=== PATIENT | male | born 1955 | race Caucasian/White ===

== ENCOUNTER 2019-03-20 01:49 | Inpatient (IN) | payer MEDICAID ==
[~2019-03-20] VITALS: Ht 170.2 cm; Wt 62.6 kg
[2019-03-20 01:49] VITALS: BP 159/106
[2019-03-20] MEDS ORDERED: ALUMINUM HYD/MAG/SIMETHICONE 30 ML UDC PO ONE (02:10)
[2019-03-20] MEDS ORDERED: LIDOCAINE VISCOUS 2% 20 ML UDC PO ONE (02:10)
[2019-03-20] MEDS ORDERED: FAMOTIDINE 20 MG/2 ML VIAL IVP ONE (02:10)
[2019-03-20] MEDS ORDERED: MORPHINE SULFATE 4 MG/ML SYR IVP ONE (02:10)
[2019-03-20] MEDS ORDERED: NACL 0.9% 1,000 ML IV ONE (02:10)
--- NOTE | 2019-03-20 02:14 | NUR ---
64 Y/O MALE BIB EMS. PT PICKED UP FROM HOME. WOKE UP WITH SEVERE EPIGASTRIC ABD PAIN, NON-RADIATING, SEVERE PRESSURES PAIN, 10/10. ALSO C/O NAUSEA WITHOUT VOMITING. DIAPHORETIC. NO SOB/DYPSNEA. ABD HARD AND TENDER TO PALPATION. X4 QUADRANT BOWEL SOUNDS PRESENT. POSITIONED IN BED FOR COMFORT. ER MD AWARE. CONTINUE TO MONITOR.
--- NOTE | 2019-03-20 02:14 | NUR ---
PT BIBA [facility] TO ER BED 10
[2019-03-20 02:34] LABS: BASOPHILS # (AUTO) 0.1 K/uL (0.00-0.22); BASOPHILS % (AUTO) 0.7 % (0.0-2.0); EOSINOPHILS # (AUTO) 0.1 K/uL (0-0.4); EOSINOPHILS % (AUTO) 0.7 % (0.0-4.0); HEMATOCRIT 46.9 % (36-52); HEMOGLOBIN 15.9 g/dL (12.0-18.0); LYMPHOCYTES # (AUTO) 2.3 K/uL (2.0-11.5); LYMPHOCYTES % (AUTO) 32.8 % (20.5-51.1); MEAN CORPUSCULAR HEMOGLOBIN 34 pg (27-31); MEAN CORPUSCULAR HGB CONC 34 g/dL (33-37); MEAN CORPUSCULAR VOLUME 99.9 fL (80-94); MONOCYTES # (AUTO) 0.6 K/uL (0.8-1.0); MONOCYTES % (AUTO) 8.3 % (1.7-9.3); NEUTROPHILS % (AUTO) 57.5 % (42.2-75.2); PLATELET COUNT (AUTO) 316 K/uL (140-450); RED BLOOD CELL COUNT(AUTO) 4.69 MIL/uL (4.20-6.10); RED CELL DISTRIBUTION WIDTH 13.3 % (11.6-13.7)
[2019-03-20 02:55] LABS: ALBUMIN 3.8 g/dL (3.4-5.0); ANION GAP 16.2 (8-16); CARBON DIOXIDE 26.9 mmol/L (21-32); POTASSIUM 5.1 mmol/L (3.5-5.1); TOTAL BILIRUBIN 0.7 mg/dL (0.0-1.0)
--- NOTE | 2019-03-20 03:00 | NUR ---
PT IN BED RESTING WITH EYES OPEN. STATES PAIN REDUCED 02/15. TOLLERABLE. NO SOB/DYSPNEA. DR SPEAR NOTIFED. CONTINUE TO MONITOR.
--- NOTE | 2019-03-20 04:00 | NUR ---
PT IN BED RESTING WITH EYES OPEN. NO SOB/DYSPNEA. NO N/V. 4/10 PAIN. CONTINUE TO MONITOR.
--- NOTE | 2019-03-20 05:00 | NUR ---
PT IN BED RESTING WITH EYES CLOSED. NO C/O AT THIS TIME. DR SPEAR NOTIFIED. CONTINUE TO MONITOR.
--- NOTE | 2019-03-20 05:24 | NUR ---
PT STATES PAIN RETURNING AND NAUEA RETURNING. DR SPEAR NOTIFIED. CONTINUE TO MONITOR.
[2019-03-20] MEDS ORDERED: ONDANSETRON 4 MG/2 ML VIAL IVP ONE (05:25)
--- NOTE | 2019-03-20 05:50 | NUR ---
MORPHINE 4MG AND ZOFRAN 4MG GIVEN PER DR SPEAR ORDERS. MEDICATION NOT POPULATING. OVERIDE IN PIXIS.
[2019-03-20] MEDS ORDERED: MORPHINE SULFATE 4 MG/ML SYR ONE (05:55)
[2019-03-20] MEDS ORDERED: ONDANSETRON 4 MG/2 ML VIAL ONE (05:56)
[2019-03-20] MEDS ORDERED: HYDROmorphone PFS 2 MG/ML SYR IVP ONE (06:35)
[2019-03-20] MEDS ORDERED: MORPHINE SULFATE 2 MG/ML SYR IVP PRN (06:55)
[2019-03-20] MEDS ORDERED: ONDANSETRON 4 MG/2 ML VIAL IM/IVP PRN (06:55)
--- NOTE | 2019-03-20 07:10 | NUR ---
ASSUMED CARE OF PT FROM TIMOTHY NICHOLS
--- NOTE | 2019-03-20 07:45 | NUR ---
Patient will be admitted to care of DR CASTILLO. Admited to TELE. Will go to room 126-A. Belongings list completed. Report to TIMOTHY BREWSTER.
--- NOTE | 2019-03-20 07:50 | NUR ---
RECEIVED BEDSIDE REPORT FROM TIE WORKER. PATIENT AMBULATED TO BED WITH STEADY GAIT, NO SIGNS OF DISTRESS ON RA. VITALS STABLE. PATIENT CHANGED INTO HOSPITAL GOWN. ORIENTED PATIENT TO ROOM AND UNIT. PATIENT CURRENTLY NPO. 2 GAUGE IV INSERTED INTO RIGHT AC. FLUSHING WELL. NO C/O PAIN AT THIST TIME. PATIENT HAD 1 EPISODE OF VOMITING. EMESIS WAS 80ML GREEN AND BILE-LIKE. PATIENT RETURNED TO BED, NO LONGER C/O NAUSEA.
[2019-03-20] MEDS ORDERED: MORPHINE SULFATE 4 MG/ML SYR IVP SCH (08:15)
[2019-03-20] MEDS ORDERED: amLODIPine 5 MG TAB PO SCH (09:00)
[2019-03-20] MEDS ORDERED: BISACODYL 10 MG SUPP RC SCH (09:00)
[2019-03-20] MEDS: NACL 0.9% 1,000 ML IV SCH ×3 (10:17→21:54)
--- NOTE | 2019-03-20 10:17 | NUR ---
ADMINISTERED SCHEDULED MEDICATIONS. PATIENT TOLERATED WELL. NO SIGNS OF DISTRESS ON RA, PATIENT STATES HE HAS "A LITTLE" PAIN, BUT THAT HE DOES NOT WANT MEDICATION FOR IT AT THIS TIME. SAFETY PRECAUTIONS IN PLACE. WILL CONTINUE TO MONITOR.
[2019-03-20 10:31] LABS: PROTHROMBIN TIME 9.8 secs (10.8-13.4)
[2019-03-20 10:42] LABS: FREE T4 (FREE THYROXINE) 0.78 ng/dL (0.76-1.46); MAGNESIUM 1.8 mg/dL (1.8-2.4); PHOSPHORUS 3.3 mg/dL (2.5-4.9); THYROID STIMULATING HORMONE 1.8 uIU/mL (0.34-3.74)
--- NOTE | 2019-03-20 12:45 | NUR ---
PATIENT EATING LUNCH WITH FAMILY AT BEDSIDE. NO C/O PAIN OR NAUSEA. WILL CONTINUE TO MONITOR.
--- NOTE | 2019-03-20 15:40 | NUR ---
ADMINISTERED SCHEDULED MEDICATIONS. PATIENT TOLERATED WELL. NO SIGNS OF DISTRESS ON RA. SAFETY PRECAUTIONS IN PLACE. WILL CONTINUE TO MONITOR.
[2019-03-20 16:00] VITALS: BP 134/74
[2019-03-20] MEDS: MORPHINE SULFATE 2 MG/ML SYR IVP PRN (17:06)
--- NOTE | 2019-03-20 17:10 | NUR ---
GAVE 1MG MORPHINE IV FOR 6/10 PAIN. SAFETY PRECAUTIONS IN PLACE.
--- NOTE | 2019-03-20 18:19 | NUR ---
PATIENT SLEEPING IN BED, NO SIGNS OF DISTRESS. VISIBLE CHEST RISE. WILL CONTINUE TO MONITOR.
--- NOTE | 2019-03-20 19:15 | NUR ---
GAVE BEDSIDE REPORT TO STRIPPER PRELIMINARY RN. PATIENT IN STABLE CONDITION ON RA.
--- NOTE | 2019-03-20 19:16 | NUR ---
RECEIVED REPORT FROM AM NURSE. PT LAYING IN BED, AWAKE, ALERT AND ORIENTED. ABLE TO VERBALIZE NEEDS. PT BREATHING EQUAL AND UNLABORED ON ROOM AIR. RIGHT AC 20G INTACT AND INFUSING WELL. SAFETY MEASURES IN PLACE. CALL LIGHT WITHIN REACH.
[2019-03-20 20:00] VITALS: BP 120/63
--- NOTE | 2019-03-20 21:00 | NUR ---
ANTIBIOTICS HUNG. PT SLEEPING IN BED BUT EASILY AWAKEN. NO C/O DISCOMFORT. WILL CONTINUE TO MONITOR.
[2019-03-20] MEDS: metroNIDAZOLE 500 MG/NS PREMIX 100 ML IV SCH (21:54)
--- NOTE | 2019-03-21 | NUR ---
VITALS TAKEN. PT SLEEPING. BREATHING UNLABORED. CALL LIGHT WITHIN REACH.
[2019-03-21 00:10] VITALS: BP 120/60
[2019-03-21 04:25] VITALS: BP 120/66
[2019-03-21] MEDS: MORPHINE SULFATE 2 MG/ML SYR IVP PRN ×2 (04:31→09:15)
[2019-03-21] MEDS: metroNIDAZOLE 500 MG/NS PREMIX 100 ML IV SCH ×3 (04:31→22:10)
--- NOTE | 2019-03-21 04:31 | NUR ---
MORPHINE GIVEN FOR 5/10 ABD PAIN
--- NOTE | 2019-03-21 07:20 | NUR ---
ENDORSED TO AM NURSE FOR CONTINUITY OF CARE. PT IN STABLE CONDITION.
--- NOTE | 2019-03-21 07:21 | NUR ---
RECEIVED REPORT FROM STICKER HAND RN, DECEMBER. PATIENT RESTING IN BED, AWAKE. NO SIGNS OF DISTRESS ON RA. WILL CONTINUE TO MONITOR.
[2019-03-21 08:00] VITALS: BP 122/70
[2019-03-21 08:04] LABS: ANION GAP 11.3 (8-16); CARBON DIOXIDE 26.7 mmol/L (21-32); CREATININE 0.9 mg/dL (0.7-1.3)
[2019-03-21 08:06] LABS: MAGNESIUM 2.1 mg/dL (1.8-2.4); PHOSPHORUS 2.9 mg/dL (2.5-4.9)
[2019-03-21 08:17] LABS: BASOPHILS % (AUTO) 0.2 % (0.0-2.0); EOSINOPHILS % (AUTO) 0.4 % (0.0-4.0); HEMOGLOBIN 14.6 g/dL (12.0-18.0); LYMPHOCYTES # (AUTO) 1.3 K/uL (2.0-11.5); LYMPHOCYTES % (AUTO) 20.6 % (20.5-51.1); MEAN CORPUSCULAR HEMOGLOBIN 34 pg (27-31); MEAN CORPUSCULAR HGB CONC 34 g/dL (33-37); MEAN CORPUSCULAR VOLUME 100.1 fL (80-94); MONOCYTES # (AUTO) 0.4 K/uL (0.8-1.0); MONOCYTES % (AUTO) 6.5 % (1.7-9.3); NEUTROPHILS # (AUTO) 4.4 K/uL (1.8-7.7); NEUTROPHILS % (AUTO) 72.3 % (42.2-75.2); PLATELET COUNT (AUTO) 245 K/uL (140-450); RED BLOOD CELL COUNT(AUTO) 4.29 MIL/uL (4.20-6.10); RED CELL DISTRIBUTION WIDTH 13.1 % (11.6-13.7); WHITE BLOOD COUNT (AUTO) 6.1 K/uL (4.8-10.8)
[2019-03-21] MEDS: LACTOBACILLUS RHAMNOSUS GG 1 EACH CAP PO SCH (09:14)
--- NOTE | 2019-03-21 09:17 | NUR ---
ADMINISTERED SCHEDULED MEDICATIONS AND PRN 1MG MORPHINE IV FOR PAIN OF 4/10. PATIENT HAD PREVIOUSLY STATED THAT HE DID NOT NEED PAIN MEDICATION BUT IS NOW STATING THAT HE WANTS IT. PATIENT TOLERATED ALL MEDICATIONS WELL. NO SIGNS OF DISTRESS. VITALS ARE STABLE. SAFETY PRECAUTIONS IN PLACE.
--- NOTE | 2019-03-21 09:31 | NUR ---
PATIENT HAS BEEN SCREENED AND CATEGORIZED MODERATE NUTRITION RISK. PATIENT WILL BE SEEN WITHIN 3-5 DAYS OF ADMISSION. 03/22/19-03/24/[address]
[2019-03-21] MEDS: NACL 0.9% 1,000 ML IV SCH ×3 (09:56→22:14)
[2019-03-21 10:11] LABS: BARBITURATE, URINE NEG. ng/ml (NEG <=200); BENZODIAZEPINE, URINE NEG. ng/mL (NEG <=200); CANNABINOID, URINE NEG. ng/mL (NEG <=50); COCAINE, URINE NEG. ng/mL (NEG <=300); OPIATE, URINE NEG. ng/mL (NEG <=2000); PHENCYCLIDINE SCREEN,URINE NEG. ng/mL (NEG <=25)
[2019-03-21 10:15] LABS: APPEARANCE,URINE CLEAR (CLEAR); BILIRUBIN,URINE NEGATIVE (NEGATIVE); BLOOD, URINE NEGATIVE (NEGATIVE); COLOR,URINE YELLOW (YELLOW); LEUKOCYTE ESTERASE ,URINE NEGATIVE (NEGATIVE); NITRITE, URINE NEGATIVE (NEGATIVE); PH,URINE 6.5 (5.0-9.0); UGLUCOSE NEGATIVE (NEGATIVE)
--- NOTE | 2019-03-21 13:04 | NUR ---
ADMINISTERED SCHEDULED MEDICATIONS. PATIENT TOLERATED WELL. PATIENT ATE 100% OF LUNCH. TOLERATING FULL LIQUID WITH NO C/O NAUSEA, BUT C/O OF MINOR PAIN IN MID/UPPER ABDOMINAL REGION. FAMILY AT BEDSIDE. UPDATED PATIENT ON PLAN OF CARE. POSSIBLE DISCHARGER TOMORROW. PATIENT ANXIOUS TO GET HOME. ALL SAFETY PRECAUTIONS IN PLACE. IV INFUSING ELL TO RIGHT AC 20 GAUGE. WILL CONTINUE TO MONITOR.
--- NOTE | 2019-03-21 15:20 | NUR ---
ADMINISTERED SCHEDULED MEDICATIONS. PATIENT TOLERATED WELL. FAMILY AT BEDSIDE. NO SIGNS OF DISTRESS.
[2019-03-21 16:00] VITALS: BP 110/71
--- NOTE | 2019-03-21 17:30 | NUR ---
PATIENT RESTING, FAMILY AT BEDSIDE. NO SIGNS FO DISTRESS, REPORTING MINOR PAIN, DOES NOT WANT MEDS. WILL CONTINUE TO MONITOR.
--- NOTE | 2019-03-21 19:28 | NUR ---
GAVE BEDSIDE REPORT TO BOOM OPERATOR RNRUBY. PATIENT IN STABLE CONDITION ON RA.
--- NOTE | 2019-03-21 19:29 | NUR ---
RECEIVED REPORT FROM AM SHIFT RN, NEY. PATIENT IS AWAKE, ALERT, WATCHING TV. ON ROOM AIR, WITH RIGHT AC 20G IV, RUNNING WITH NORMAL SALINE AT 126 ML/HR, IV IS PATENT AND INTACT. PATIENT IS ON CLEAR LIQUID DIET, AMBULATORY, SKIN IS INTACT, AND DENIES ANY PAIN AT THIS TIME. WILL MONITOR PATIENT THROUGHOUT SHIFT.
--- NOTE | 2019-03-21 21:00 | NUR ---
PATIENT AWAKE, WATCHING TV, DENIES PAIN AT THIS TIME. WILL ADMINISTER IV ANTIBIOTICS ORDERED.
--- NOTE | 2019-03-21 22:10 | NUR ---
HUNG IV ANTIBIOTICS, AND NEW BAG OF NORMAL SALINE, ORDERED. PATIENT LYING DOWN, ASLEEP, WITH NO SIGNS OF DISTRESS. WILL CONTINUE TO MONITOR PATIENT.
[2019-03-22] VITALS: BP 105/59
--- NOTE | 2019-03-22 | NUR ---
VITAL SIGNS CHECKED AND CHARTED. PATIENT LYING DOWN, ASLEEP, WITH NO SIGNS OF DISTRESS. WILL CONTINUE TO MONITOR PATIENT.
--- NOTE | 2019-03-22 01:55 | NUR ---
PATIENT LYING DOWN, ASLEEP, WITH NO SIGNS OF DISTRESS. WILL CONTINUE TO MONITOR PATIENT.
--- NOTE | 2019-03-22 04:00 | NUR ---
PATIENT LYING DOWN, ASLEEP, WITH NO SIGNS OF DISTRESS. WILL CONTINUE TO MONITOR PATIENT.
[2019-03-22] MEDS: metroNIDAZOLE 500 MG/NS PREMIX 100 ML IV SCH ×2 (04:43→13:01)
--- NOTE | 2019-03-22 04:43 | NUR ---
HUNG IV ANTIBIOTICS ORDERED. PATIENT TOLERATING IT WELL. INFORMED PATIENT FOR URINE SAMPLE COLLECTION. WILL CONTINUE TO MONITOR PATIENT.
--- NOTE | 2019-03-22 06:30 | NUR ---
PATIENT LYING DOWN, ASLEEP, WITH NO SIGNS OF DISTRESS OR DISCOMFORT. WILL CONTINUE TO MONITOR PATIENT.
[2019-03-22] MEDS: NACL 0.9% 1,000 ML IV SCH ×2 (06:35→13:02)
--- NOTE | 2019-03-22 07:15 | NUR ---
REPORT GIVEN AT BEDSIDE TO AM SHIFT RN, PUSHPA, FOR PATIENT'S CONTINUITY OF CARE. PATIENT IS AWAKE, WATCHING TV, AND ON HIS PHONE. WAS ABLE TO COLLECT URINE. PATIENT DENIES ANY PAIN AT THIS TIME.
--- NOTE | 2019-03-22 07:16 | NUR ---
RECEIVED ENDORSEMENT FROM HEAVY EQUIPMENT RENTAL MANAGER NURSE. PATIENT IS AAOX4, NIUEAN SPEAKING. RESPIRATIONS ARE EVEN AND UNLABORED ON ROOM AIR. RIGHT AC 20G IV INTACT, PATENT, AND INFUSING IVF. PATIENT DENIES ANY PAIN AT THIS TIME. PLAN OF CARE WAS REVIEWED WITH PATIENT, PATIENT VERBALIZED UNDERSTANDING. SAFETY MEASURES IN PLACE, CALL LIGHT WITHIN REACH.
[2019-03-22 08:00] VITALS: BP 125/72
[2019-03-22] MEDS: LACTOBACILLUS RHAMNOSUS GG 1 EACH CAP PO SCH (08:54)
--- NOTE | 2019-03-22 09:00 | NUR ---
ADMINISTERED SCHEDULED MEDICATIONS. PATIENT TOLERATED WELL NO OTHER NEEDS AT THIS TIME. PATIENT DENIES ANY PAIN AT THIS TIME.
--- NOTE | 2019-03-22 11:36 | NUR ---
PATIENT RESTING. PATIENT DENIES ANY PAIN, NO OTHER NEEDS AT THIS TIME.
--- NOTE | 2019-03-22 13:10 | NUR ---
ADMINISTERED SCHEDULED MEDICATIONS. PATIENT TOLERATED WELL. NO OTHER NEEDS AT THIS TIME. PATIENT DENIES ANY PAIN AT THIS TIME. FAMILY IS PRESENT AT THE BEDSIDE.
[2019-03-22] MEDS ORDERED: METR250T2 PO (13:53)
[2019-03-22] MEDS ORDERED: LACT10CA1 PO (13:53)
--- NOTE | 2019-03-22 15:50 | NUR ---
ADMINISTERED SCHEDULED MEDICATIONS. PATIENT TOLERATED WELL. PATIENT DENIES ANY PAIN AT THIS TIME. NO OTHER NEEDS AT THIS TIME.
[2019-03-22 16:00] VITALS: BP 126/75
--- NOTE | 2019-03-22 17:45 | NUR ---
PATIENT SITTING IN BED CONVERSING WITH FAMILY, NO OTHER NEEDS AT THIS TIME.
--- NOTE | 2019-03-22 18:09 | NUR ---
DR. ALMANZAR SAW PATIENT. PATIENT WISHED TO BE SEEN OUTPATIENT. NO OTHER NEEDS AT THIS TIME.
--- NOTE | 2019-03-22 19:39 | NUR ---
ENDORSED TO PACKAGE LINER NURSE FOR CONTINUITY OF CARE. PATIENT IS STABLE AT THIS TIME.
--- NOTE | 2019-03-22 19:40 | NUR ---
RECEIVED REPORT FROM AM NURSE. PT SITTING UP IN BED, AWAKE, ALERT AND ORIENTED X4. PT BREATHING UNLABORED ON ROOM AIR. RIGHT A/C 20G INTACT AND INFUSING WELL. PT FAMILY AT BEDSIDE. SAFETY MEASURES IN PLACE. CALL LIGHT WITHIN REACH.
[2019-03-22 20:15] VITALS: BP 144/78
[2019-03-22 20:28] VITALS: BP 144/78
--- NOTE | 2019-03-22 21:40 | NUR ---
PT DISCHARGED. PT AWAKE, ALERT AND ORIENTED X4. BREATHING UNLABORED ON ROOM AIR. PT GAIT STEADY. FAMILY AT BEDSIDE TO TAKE PT HOME. RIGHT AC 20G REMOVED, CANNULA INTACT. PT BELONGINGS IN POSSESSION. NAME BAND REMOVED. PT CONDITION STABLE AT TIME OF DISCHARGE.
== END 2019-03-22 21:40 | disposition home or self-care (01) | DRG 249 ==
LOC: MED 01:49 → MMU 06:58
PROVIDERS: ADMIT General Practice; ATTEND General Practice
DX: A08.4 Viral intestinal infection, unspecified (principal); N17.0 Acute kidney failure with tubular necrosis; I10 Essential (primary) hypertension; N43.3 Hydrocele, unspecified; D75.89 Other specified diseases of blood and blood-forming organs
CPT/HCPCS: 36415; 71045; 76705; 80048; 80053; 80305; 81003; 82140; 82150; 82550; 83036; 83605; 83615; 83690; 83735; 83880; 84100; 84439; 84443; 84484; 85025; 85610; 85730; 87081; 93005; 96374; 96375; 99285; J0696; J1170; J2270; J2405; J3490; J7030; J7060; Q0092; Q9967